=== PATIENT | female | born 1980 | race Caucasian/White ===

== ENCOUNTER → 2016-10-05 | Outpatient (CLI) | payer OTHER ==
--- NOTE | 2016-10-05 17:47 | REP ---
Focused right breast ultrasound: History: History of a painful palpable mass in the right breast at 2 o'clock position, 2 cm from the nipple. It is described as mobile and cystic and 5 mm in diameter by clinician breast exam. No comparison imaging. The patient is status post bilateral augmentation implants. Sonographic findings: The visualized implant margins are smooth. Scanning over the area of the palpable lump demonstrate a subdermal hypoechoic but somewhat heterogeneous nodule containing some low level and a few bright internal echoes. This is oval in shape with its long axis parallel to the skin measuring 12 x 11 x 6 mm. No detectable internal Doppler flow. There is some enhanced through transmission. Lesion is not a simple cyst. Impression: 12 mm subdermal nodule at the site of the palpable lump is nonspecific. The lesion is not compatible with a simple cyst. It is consistent with but not specific for fibroadenoma. If biopsy is not pursued, clinical follow-up is recommended. Signed by Stephen Posada MD 10/06/2016 08:01 A
== END ==
LOC: M RAD 14:58
PROVIDERS: ATTEND Family Medicine
DX: N63 Unspecified lump in breast (principal); Z98.82 Breast implant status

== ENCOUNTER → 2016-12-10 | Outpatient (CLI) | payer OTHER ==
--- NOTE | 2016-12-10 15:42 | REP ---
MRI CERVICAL SPINE WITHOUT CONTRAST: 12/10/2016. Clinical history: Occipital neuralgia. Neck pain. Technique: C1, T2 and STIR images with axial T1 and T2 sequences provided. Findings. No prior study. Sagittal images show slight loss of normal lordosis. Disc space height slightly narrowed C5-6 but the other disc space heights are maintained. C5-6 and levels above show slight loss of disc water signal, maintained relatively at the levels below. No compression deformity or destructive lesion. The cervical cord shows no intrinsic signal abnormality, syrinx or mass. No myelomalacia. There is no cerebellar tonsillar ectopia with an ample subarachnoid space at the craniocervical junction. At C2-3 through C4-5, there is no disc bulge or herniation and no spinal or foraminal stenosis. At C5-6 there is a minimal disc bulge without spinal or foraminal stenosis. At C6-7, C7-T1 and T1-2, there is no disc bulge or herniation and no spinal or foraminal stenosis. Impression: 1. Straightening of the spine, which may reflect some spasm with minor degenerative disc changes and disc bulge at C5-6 not causing spinal or foraminal stenosis. Minimal spondylosis with disc water signal, decreased at C4-5 and above. There are no spinal or foraminal stenosis at any level. 2. No intrinsic cord signal abnormality, syrinx, atrophy or mass. Signed by Hesham Hadley MD 12/10/2016 05:10 P
--- NOTE | 2016-12-10 16:51 | REP ---
MRI BRAIN WITHOUT CONTRAST: 12/10/2016. Comparison CT brain 09/24/2016, MRA brain today. Clinical history: Dizziness, giddiness, chronic migraine headaches, occipital neuralgia. Technique: Sagittal T1 with axial T1, T2, FLAIR, diffusion weighted images and ADC mapping sequences provided. Lateral ventricles are midline, symmetric and without dilatation or displacement. Third and fourth ventricles unremarkable. Basal ganglia are symmetric and normal. The prasad-white junction differentiation was well maintained. I see no significant periventricular, deep central or subcortical white matter hyperintense T2 or FLAIR signal abnormality of significance. Cortical stripe preserved. There is no vascular territory infarct, hemorrhage, mass or mass effect. There is no extra-axial fluid collection. The brainstem and cerebellum are grossly intact. No signal abnormality, hemorrhage or mass. Seventh/eighth cranial nerve complexes and mastoids are unremarkable. Sinuses and orbits and their contents grossly intact. The corpus callosum, optic chiasm and pituitary were normal. There is no cerebellar tonsillar ectopia with ample subarachnoid space at the craniocervical junction. Impression: 1. Normal MRI brain. No white matter tract signal abnormalities, intracranial hemorrhage, mass, edema, infarct or other significant finding. Negative exam. Signed by Hesham Hadley MD 12/10/2016 05:12 P
--- NOTE | 2016-12-10 16:59 | REP ---
MRA BRAIN WITHOUT CONTRAST: 12/10/2016. Clinical history: Dizziness, giddiness, chronic migraines. Occipital neuralgia. Technique: 3-D waji-ex-lsieny gradient echo volume acquisition with MIP reformatting and rotational display of the volume acquisition of the longitudinal and horizontal axis of the brain. Findings: There is a fairly symmetric supply to the basilar artery from the right and left vertebral arteries. No basilar stenosis or basilar tip aneurysm. There is a contribution to the left posterior cerebral artery from a posterior communicating artery. Symmetric posterior cerebral arteries beyond this. No aneurysm. The right internal carotid through the skull base and carotid siphons show no stenosis or aneurysm. The intracavernous and supraclinoid carotid were unremarkable. The A1 and M1 segments and the A2 and M2 segments and branches were grossly intact. The left internal carotid likewise shows intact course through the skull base to the carotid siphon. The cavernous carotid and supraclinoid were intact. The A1 and M1 segments are preserved. The A1 segment shows a few minimal areas of stenosis. The A2 and M2 segments were grossly intact and symmetric. Impression: 1. There is a posterior communicating artery, which contributes along with the normal basilar tip origin of the posterior cerebral artery to the left posterior cerebral. Symmetric supply to the posterior fossa. 2. Very minimal areas of stenosis in the A1 segment on the left compared to the right, but no aneurysm or significant stenosis on either side. The M1 segments and branches intact. No other finding. Signed by Hesham Hadley MD 12/10/2016 05:12 P
== END ==
LOC: M RAD 13:30
PROVIDERS: ATTEND Psychiatry & Neurology Neurology
DX: M50.222 Other cervical disc displacement at C5-C6 level (principal); M50.30 Other cervical disc degeneration, unspecified cervical region; M47.812 Spondylosis without myelopathy or radiculopathy, cervical region; G43.711 Chronic migraine without aura, intractable, with status migrainosus; G44.221 Chronic tension-type headache, intractable; M54.81 Occipital neuralgia

== ENCOUNTER 2017-05-16 07:55 | Emergency (ER) | payer OTHER, SELFPAY ==
[~2017-05-16] VITALS: Ht 154.9 cm; Wt 49.5 kg
[2017-05-16] MEDS ORDERED: KETOROLAC 30 MG/ML VIAL (J1885) IV ONE (09:15)
[2017-05-16 09:39] LABS: BASO % 0.5 % (0.0-1.0); EOS # 0.1 K/mm3 (0.0-0.50); LARGE UNSTAINED CELL # 0.2 K/mm3 (0.0-0.4); LARGE UNSTAINED CELL % 2.7 % (0.0-4.0); LYMPH # 1.8 K/mm3 (1.5-4.5); LYMPH % 25.1 % (24.0-44.0); MEAN CORPUSCULAR VOLUME 94.1 fl (80.0-96.0); MONO # 0.3 K/mm3 (0.0-0.8); MONO % 4.3 % (0.0-5.0); NEUTROPHILS # 4.8 K/mm3 (1.8-7.7); NEUTROPHILS % 66.4 % (36.0-66.0); PLATELET COUNT, AUTOMATED 208 k/mm3 (150-450); RED CELL DISTRIBUTION WIDTH 11.7 % (11.5-14.5); WHITE BLOOD COUNT 7.2 K/mm3 (4.0-10.0)
[2017-05-16 09:56] LABS: ALBUMIN 4.1 GM/DL (3.2-5.2); ALBUMIN/GLOBULIN RATIO 1.08 (1.00-1.93); ALKALINE PHOSPHATASE 41 U/L (45-117); ALT/SGPT 15 U/L (12-78); ANION GAP 8 MEQ/L (8-16); AST/SGOT 11 U/L (15-37); BILIRUBIN,DIRECT 0.2 MG/DL (0.0-0.2); BILIRUBIN,TOTAL 1.1 MG/DL (0.2-1.0); BLOOD UREA NITROGEN 15 MG/DL (7-18); CALCIUM LEVEL 8.5 MG/DL (8.5-10.1); CARBON DIOXIDE LEVEL 25 MEQ/L (21-32); CHLORIDE LEVEL 106 MEQ/L (98-107); CREATININE FOR GFR 0.75 MG/DL (0.55-1.02); GLOMERULAR FILTRATION RATE > 60.0 (>60); GLUCOSE, FASTING 87 MG/DL (70-105); POTASSIUM SERUM 3.7 MEQ/L (3.5-5.1); SODIUM LEVEL 139 MEQ/L (136-145); TOTAL PROTEIN 7.9 GM/DL (6.4-8.2)
--- NOTE | 2017-05-16 10:32 | REP ---
Pelvic sonography: History: Pelvic pain with spotting. Findings: Transabdominal scanning and transvaginal scanning are performed. Uterine dimensions are 9.7 x 4.7 x 6.1 cm. Endometrial echo is 1.2 cm thick and centrally placed. No focal uterine mass is seen. There is only a trace of fluid in the cul-de-sac. Visualized bladder alberts are smooth. The right ovary measures 4.3 x 2.4 x 3.1 cm. It contains a 2.1 x 1.2 x 1.7 cm follicle cyst. The left ovary is only seen transabdominally and has a normal appearance with dimensions of 2.7 x 1.0 x 2.8 cm. Impression: 2.1 cm follicle right ovary. Normal pelvic sonography. Signed by Stephen Posada MD 05/16/2017 10:57 A
[2017-05-16] MEDS ORDERED: BACT800T5 PO (11:50)
[2017-05-16] MEDS ORDERED: PERC5TAB12 PO (11:51)
[2017-05-16 12:12] VITALS: BP 103/68
== END 2017-05-16 12:13 | disposition home or self-care (01) ==
LOC: M ED 07:55
DX: N39.0 Urinary tract infection, site not specified (principal); N92.1 Excessive and frequent menstruation with irregular cycle; N83.299 Other ovarian cyst, unspecified side; N83.01 Follicular cyst of right ovary; Z88.5 Allergy status to narcotic agent; Z88.0 Allergy status to penicillin
CPT/HCPCS: 76830; 76856; 80048; 80076; 81001; 81025; 83690; 85025; 87086; 87210; 87491; 87591; 93976; 96374; 99284; J1885

== ENCOUNTER → 2017-10-19 | Outpatient (CLI) | payer OTHER ==
[2017-10-19 11:28] LABS: ANION GAP 8 MEQ/L (8-16); BLOOD UREA NITROGEN 12 MG/DL (7-18); CALCIUM LEVEL 9.1 MG/DL (8.5-10.1); CARBON DIOXIDE LEVEL 26 MEQ/L (21-32); CHLORIDE LEVEL 107 MEQ/L (98-107); CREATININE FOR GFR 0.71 MG/DL (0.55-1.02); GLOMERULAR FILTRATION RATE > 60.0 (>60); GLUCOSE, FASTING 96 MG/DL (70-100); POTASSIUM SERUM 4.5 MEQ/L (3.5-5.1); SODIUM LEVEL 141 MEQ/L (136-145); THYROID STIMULATING HORMONE 0.945 uIU/ML (0.358-3.740)
[2017-10-19 12:23] LABS: PROLACTIN 5.9 NG/ML
== END ==
LOC: M LAB 09:56
DX: F41.8 Other specified anxiety disorders (principal)
CPT/HCPCS: 84146

== ENCOUNTER → 2017-10-20 | Outpatient (CLI) | payer OTHER | LOC: M RAD 15:53 | DX: N63.10 Unspecified lump in the right breast, unspecified quadrant (principal); N64.59 Other signs and symptoms in breast | CPT/HCPCS: 77065 ==

== ENCOUNTER 2018-04-24 11:48 | Emergency (ER) | payer OTHER | END 2018-04-24 15:04 | disposition home or self-care (01) | LOC: M ED 11:48 | DX: S93.602A Unspecified sprain of left foot, initial encounter (principal); W28.XXXA Contact with powered lawn mower, initial encounter; Y92.096 Garden or yard of other non-institutional residence as the place of occurrence of the external cause; Z88.0 Allergy status to penicillin; Z88.8 Allergy status to other drugs, medicaments and biological substances | CPT/HCPCS: 73630 ==

== ENCOUNTER → 2018-06-05 | Outpatient (CLI) | payer OTHER | LOC: M LRY 11:43 | DX: R10.13 Epigastric pain (principal) | CPT/HCPCS: 74018 ==

== ENCOUNTER → 2018-06-15 | Outpatient (REF) | payer OTHER ==
[2018-06-15 18:48] LABS: CONTROL LINE HCG INT CTR LINE PRESENT; HCG, SERUM QUALITATIVE NEGATIVE (NEGATIVE)
[2018-06-15 22:30] LABS: FOLLICLE STIMULATING HORMONE 8.5 mIU/mL; FREE T4 1.28 NG/DL (0.76-1.46); LUTEINIZING HORMONE 3.9 mIU/mL
== END ==
LOC: M LAB REF 18:19
DX: N92.4 Excessive bleeding in the premenopausal period (principal)
CPT/HCPCS: 83001

== ENCOUNTER → 2018-06-29 | Outpatient (CLI) | payer OTHER | LOC: M RAD 08:56 | DX: G43.009 Migraine without aura, not intractable, without status migrainosus (principal); R42 Dizziness and giddiness; H90.6 Mixed conductive and sensorineural hearing loss, bilateral | CPT/HCPCS: 70551 ==

== ENCOUNTER → 2018-07-11 | Outpatient (CLI) | payer OTHER | LOC: M SMT 12:52 | DX: N92.4 Excessive bleeding in the premenopausal period (principal) | CPT/HCPCS: 76830 ==

== ENCOUNTER → 2018-07-19 | Outpatient (REF) | payer OTHER ==
[2018-07-21 14:47] LABS: HPV HYBRID CAPTURE II Negative (Negative)
== END ==
LOC: M LAB REF 18:07
DX: Z12.4 Encounter for screening for malignant neoplasm of cervix (principal)
CPT/HCPCS: 88142

== ENCOUNTER → 2018-08-02 | Outpatient (REF) | payer OTHER | LOC: M LAB REF 17:33 | DX: N93.9 Abnormal uterine and vaginal bleeding, unspecified (principal) ==

== ENCOUNTER 2018-08-21 08:41 | Day surgery (SDC) | payer OTHER ==
[2018-08-21] MEDS: LR 1,000 ML IV ×8 (08:59→22:59)
[2018-08-21 09:09] LABS: HEMOGLOBIN 13.2 g/dl (12.0-15.5); MEAN CORPUSCULAR HEMOGLOBIN 32.7 pg (27.0-33.0); MEAN CORPUSCULAR HGB CONC 34.7 g/dl (32.0-36.5); MEAN CORPUSCULAR VOLUME 94.1 fl (80.0-96.0); PLATELET COUNT, AUTOMATED 181 10^3/uL (150-450); RED BLOOD COUNT 4.04 10^6/uL (4.00-5.40); RED CELL DISTRIBUTION WIDTH 12.3 % (11.5-14.5); WHITE BLOOD COUNT 4.2 10^3/uL (4.0-10.0)
[2018-08-21 09:27] LABS: CONTROL LINE HCG INT CTR LINE PRESENT; HCG, SERUM QUALITATIVE NEGATIVE (NEGATIVE)
[2018-08-21] MEDS ORDERED: SCOPOLAMINE 1MG TRANSDERMAL PATCH As Ordered ×2 (09:50)
[2018-08-21] MEDS ORDERED: LIDOCAINE 2% INJ 100 MG/5 ML SDV (FOR ANES.) As Ordered ×2 (11:23)
[2018-08-21] MEDS ORDERED: MIDAZOLAM INJ 2 MG/2 ML VIAL (J2250) As Ordered ×2 (11:23)
[2018-08-21] MEDS ORDERED: dexameTHASONE 4 MG/ML 1ML VIAL (J1100) As Ordered ×2 (11:23)
[2018-08-21] MEDS ORDERED: PROPOFOL 200 MG/20 ML VIAL As Ordered ×2 (11:23)
[2018-08-21] MEDS ORDERED: fentaNYL 100 MCG/2 ML INJECTION (J3010) As Ordered ×2 (11:23)
[2018-08-21] MEDS ORDERED: ROCURONIUM BROMIDE 50 MG/5 ML VIAL As Ordered ×4 (11:23→11:52)
[2018-08-21] MEDS ORDERED: HYDROmorphone HCL 2 MG/ML 1ML VIAL (J1170) As Ordered ×2 (11:37)
[2018-08-21] MEDS ORDERED: ONDANSETRON 4MG/2ML VIAL (J2405) As Ordered ×2 (13:05)
[2018-08-21] MEDS ORDERED: KETOROLAC 60 MG/2 ML VIAL (J1885) As Ordered ×2 (13:05)
[2018-08-21] MEDS: METHYLENE BLUE 0.5% (5MG/ML) 10 ML AMP (PROVAYBLUE)(Q9968 PER 1MG) As Ordered ×2 (14:00)
[2018-08-21] MEDS ORDERED: NEOSTIGMINE 10 MG/10 ML VIAL (J2710) As Ordered ×2 (14:02)
[2018-08-21] MEDS ORDERED: GLYCOPYRROLATE INJ 0.2 MG/ML 2 ML VIAL As Ordered ×2 (14:03)
[2018-08-21] MEDS: BUPIVACAINE HCL 0.25% 30 ML VIAL As Ordered ×2 (14:30)
[2018-08-21] MEDS ORDERED: PROMETHAZINE INJ 25 MG/ML VIAL (J2550) IV ×2 (15:00)
[2018-08-21] MEDS ORDERED: PERCOCET 5MG/325MG TAB PO ×4 (15:00)
[2018-08-21] MEDS ORDERED: ONDANSETRON 4MG/2ML VIAL (J2405) IV ×2 (15:15)
[2018-08-21] MEDS ORDERED: HYDROMORPHONE HCL 0.5 MG/ 0.5 ML SYRINGE (J1170 PER 1) IV ×2 (15:15)
[2018-08-21] MEDS ORDERED: NORCO, ANEXSIA 5/325MG TABLET (HYDROcodone/ACETAMINOPHEN) PO ×2 (15:15)
[2018-08-21] MEDS ORDERED: fentaNYL 100 MCG/2 ML INJECTION (J3010) IV ×2 (15:15)
[2018-08-21] MEDS: SCOPOLAMINE 1MG TRANSDERMAL PATCH TOP ×2 (15:41)
[2018-08-21] MEDS: ONDANSETRON 4MG/2ML VIAL (J2405) IV ×2 (16:00)
[2018-08-21] MEDS: traMADol 50 MG TAB PO ×4 (16:07→23:53)
[2018-08-21] MEDS: KETOROLAC 30 MG/ML VIAL (J1885) IV ×2 (20:41)
[2018-08-21] MEDS: DOCUSATE SODIUM 100 MG CAP PO ×2 (21:23)
[2018-08-21] MEDS: VENLAFAXINE 25 MG TAB PO ×2 (21:23)
[2018-08-22] MEDS: KETOROLAC 30 MG/ML VIAL (J1885) IV ×6 (02:47→14:34)
[2018-08-22] MEDS: traMADol 50 MG TAB PO ×6 (05:50→20:36)
[2018-08-22] MEDS: LR 1,000 ML IV ×2 (07:00)
[2018-08-22 07:05] LABS: BASO % 0.2 % (0.0-1.0); IMMATURE GRANULOCYTE % 0.3 % (0-3.0); LYMPH # 1.5 10^3/uL (1.5-4.5); LYMPH % 23.6 % (24.0-44.0); MEAN CORPUSCULAR HGB CONC 33.9 g/dl (32.0-36.5); MEAN CORPUSCULAR VOLUME 94.5 fl (80.0-96.0); MONO # 0.5 10^3/uL (0.0-0.8); MONO % 8.4 % (0.0-5.0); NEUTROPHILS # 4.3 10^3/uL (1.8-7.7); NEUTROPHILS % 67.5 % (36.0-66.0); PLATELET COUNT, AUTOMATED 161 10^3/uL (150-450); RED BLOOD COUNT 3.28 10^6/uL (4.00-5.40); RED CELL DISTRIBUTION WIDTH 12.5 % (11.5-14.5); WHITE BLOOD COUNT 6.4 10^3/uL (4.0-10.0)
[2018-08-22 07:09] LABS: HEMOGLOBIN 10.5 g/dl (12.0-15.5)
[2018-08-22] MEDS ORDERED: VENLAFAXINE 25 MG TAB PO ×2 (09:00)
[2018-08-22] MEDS: DOCUSATE SODIUM 100 MG CAP PO ×4 (09:17→20:34)
[2018-08-22] MEDS ORDERED: SLF 3 ML SYR IV ×2 (17:00)
[2018-08-22] MEDS: VENLAFAXINE 25 MG TAB PO ×2 (20:34)
[2018-08-22] MEDS: IBUPROFEN 800 MG TAB PO ×2 (22:06)
[2018-08-22] MEDS: SLF 3 ML SYR IV ×2 (22:07)
[2018-08-22] MEDS: ONDANSETRON 4MG/2ML VIAL (J2405) IV ×2 (23:52)
[2018-08-23] MEDS: traMADol 50 MG TAB PO ×2 (04:10)
[2018-08-23] MEDS: IBUPROFEN 800 MG TAB PO ×4 (06:04→13:55)
[2018-08-23] MEDS: SLF 3 ML SYR IV ×2 (06:05)
[2018-08-23] MEDS: DOCUSATE SODIUM 100 MG CAP PO ×2 (08:17)
== END 2018-08-23 14:15 | disposition home or self-care (01) ==
LOC: M SDC 08:41 → M PED 15:35 → M SDC 08-23 14:15
DX: N93.9 Abnormal uterine and vaginal bleeding, unspecified (principal); R10.2 Pelvic and perineal pain; F41.9 Anxiety disorder, unspecified; F32.9 Major depressive disorder, single episode, unspecified; G43.909 Migraine, unspecified, not intractable, without status migrainosus; F40.240 Claustrophobia; Z88.0 Allergy status to penicillin; Z88.5 Allergy status to narcotic agent; Z79.899 Other long term (current) drug therapy
CPT/HCPCS: 58571

== ENCOUNTER → 2018-10-18 | Outpatient (CLI) | payer OTHER ==
[~2018-10-18] MED LIST: AZIT-12 PO; BACT800T5 PO; COLA100C5 PO; IBUP80TA PO; NAPR-50 PO; PERC5TAB12 PO; ULTR50TA8 PO; VENL1TAB35 PO; ZOFR4TAB14 SL
--- NOTE | 2018-10-18 13:36 | REP ---
LUMBAR SPINE, SIX VIEWS: HISTORY: Back pain. There is no acute fracture or subluxation. The intervertebral discs are normal in height. The facet joints are normal in appearance. There is partial sacralization of the L5 vertebral body. IMPRESSION:There is no acute fracture or subluxation. Electronically Signed by Jericho Freeman MD 10/18/2018 01:56 P
== END ==
LOC: M LRY 12:25
PROVIDERS: ATTEND Nurse Practitioner Family
DX: M54.5 Low back pain (principal)

== ENCOUNTER → 2018-12-05 | Outpatient (CLI) | payer OTHER ==
--- NOTE | 2018-12-05 11:28 | REP ---
SACRUM AND COCCYX, THREE VIEWS: HISTORY: Injury. There is no acute fracture or subluxation. The L4-5 and L5-S1 intervertebral discs are normal in height . There is partial sacralization of the L5 vertebral body. IMPRESSION: There is no acute fracture or subluxation. Electronically Signed by Jericho Freeman MD 12/05/2018 11:31 A
--- NOTE | 2018-12-05 11:29 | REP ---
Lumbar spine five views: Comparison is 10/18/2018. Vertebral body heights, interspacing alignment are normal. There is no spondylolysis. There is no spondylolisthesis. The facets, pedicles and sacroiliac articulations are unremarkable. There is partial sacralization of the L5 vertebra on the right, unchanged. Impression: Negative lumbar spine. No fracture or listhesis. Electronically Signed by Ford Butts MD 12/05/2018 11:20 A
== END ==
LOC: M LRY 10:16
PROVIDERS: ATTEND Nurse Practitioner Family
DX: S39.92XA Unspecified injury of lower back, initial encounter (principal); X58.XXXA Exposure to other specified factors, initial encounter; Y92.89 Other specified places as the place of occurrence of the external cause

== ENCOUNTER → 2018-12-24 | Outpatient (REF) | payer OTHER | LOC: M SFHCLERA 16:20 | PROVIDERS: ATTEND Physician Assistant | DX: R50.9 Fever, unspecified (principal) ==

== ENCOUNTER → 2019-01-31 | Outpatient (REF) | payer OTHER, MEDICAID ==
[~2019-01-31] MED LIST changes: -NAPR-50 PO; +NAPR-837 PO
[2019-01-31 18:35] LABS: BASO # 0.1 10^3/uL (0.0-0.2); BASO % 0.9 % (0.0-1.0); EOS # 0.2 10^3/uL (0.0-0.50); EOS % 2.6 % (0.0-3.0); HEMATOCRIT 41.8 % (36.0-47.0); HEMOGLOBIN 14.1 g/dl (12.0-15.5); LYMPH # 2.1 10^3/uL (1.5-4.5); MEAN CORPUSCULAR HEMOGLOBIN 32.6 pg (27.0-33.0); MEAN CORPUSCULAR HGB CONC 33.7 g/dl (32.0-36.5); MEAN CORPUSCULAR VOLUME 96.8 fl (80.0-96.0); MONO # 0.6 10^3/uL (0.0-0.8); MONO % 8.2 % (0.0-5.0); NEUTROPHILS # 3.9 10^3/uL (1.8-7.7); PLATELET COUNT, AUTOMATED 232 10^3/uL (150-450); RED BLOOD COUNT 4.32 10^6/uL (4.00-5.40); WHITE BLOOD COUNT 6.9 10^3/uL (4.0-10.0)
[2019-01-31 18:44] LABS: ALT/SGPT 23 U/L (12-78); BILIRUBIN,TOTAL 0.7 MG/DL (0.2-1.0); BLOOD UREA NITROGEN 12 MG/DL (7-18); CALCIUM LEVEL 9.1 MG/DL (8.5-10.1); CARBON DIOXIDE LEVEL 27 MEQ/L (21-32); CHLORIDE LEVEL 105 MEQ/L (98-107); CHOLESTEROL LEVEL 192 MG/DL (<200); CREATININE FOR GFR 0.73 MG/DL (0.55-1.30); GLOMERULAR FILTRATION RATE > 60.0 (>60); GLUCOSE, FASTING 86 MG/DL (70-100); POTASSIUM SERUM 3.7 MEQ/L (3.5-5.1); SODIUM LEVEL 137 MEQ/L (136-145); TRIGLYCERIDES LEVEL 77 MG/DL (<150)
[2019-01-31 18:45] LABS: ALBUMIN 4.3 GM/DL (3.2-5.2); CHOLESTEROL RISK RATIO 3.096 (<5); HDL CHOLESTEROL 62 MG/DL (>40); LDL CHOLESTEROL 115 MG/DL (<100); NON-HDL-C 130 MG/DL; TOTAL PROTEIN 7.6 GM/DL (6.4-8.2)
[2019-01-31 19:44] LABS: HEMOGLOBIN A1c 5.2 %
[2019-01-31 20:56] LABS: VITAMIN B12 LEVEL 536 PG/ML
[2019-01-31 22:34] LABS: FOLATE 14.9 NG/ML
== END ==
LOC: M LAB REF 17:26
PROVIDERS: ATTEND Nurse Practitioner Family
DX: Z13.9 Encounter for screening, unspecified (principal); R00.2 Palpitations

== ENCOUNTER → 2019-06-05 | Outpatient (CLI) | payer OTHER ==
--- NOTE | 2019-06-05 13:36 | REP ---
RIGHT SHOULDER THREE VIEWS: There is no evidence of an acute fracture, dislocation or intrinsic bone disease. The joint spaces appear unremarkable. IMPRESSION: No fracture or dislocation. Electronically Signed by Ford Mccauley MD 06/06/2019 04:43 P
== END ==
LOC: M RAD 12:40
PROVIDERS: ATTEND Nurse Practitioner Family
DX: M25.511 Pain in right shoulder (principal)

== ENCOUNTER → 2019-06-26 | Outpatient (CLI) | payer OTHER | LOC: M LAB 12:23 | PROVIDERS: ATTEND Nurse Practitioner Family | DX: M25.511 Pain in right shoulder (principal) ==

== ENCOUNTER → 2019-07-04 | Outpatient (REF) | payer OTHER | LOC: M LAB REF 17:22 | PROVIDERS: ATTEND Orthopaedic Surgery Hand Surgery | DX: M67.441 Ganglion, right hand (principal) ==

== ENCOUNTER → 2019-09-22 | Outpatient (CLI) | payer OTHER ==
--- NOTE | 2019-09-23 17:01 | REPVR ---
PROCEDURE INFORMATION: Exam: MR Lumbar Spine Without Contrast. 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 COMPARISON: CR SPINE LS COMPLETE 12/05/2018 10:45 AM FINDINGS: Vertebrae: The conus terminates at the level of the L1 vertebral body. Hemangiomas within T12 and L1 vertebral bodies. High T1 signal lesion within the right ilium, incompletely visualized, consistent with hemangioma. No fracture. Spinal cord: Normal signal. No cord compression. L1-L2: No significant disc disease. No significant spinal stenosis. L2-L3: No significant disc disease. No significant spinal stenosis. L3-L4: No significant disc disease. No significant spinal stenosis. L4-L5: Mild degenerative facet arthrosis. Normal disc. No focal disc protrusion or nerve impingement. L5-S1: Mild degenerative facet arthrosis. No disc protrusion, nerve impingement or spinal stenosis. Soft tissues: Unremarkable. IMPRESSION: 1. Mild degenerative facet arthrosis at L4-L5, L5-S1. 2. No disc herniation, nerve root impingement or spinal stenosis. Electronically signed by: Jose Barry On 09/23/2019 17:01:27 PM
== END ==
LOC: M RAD 11:23
PROVIDERS: ATTEND Orthopaedic Surgery
DX: M46.96 Unspecified inflammatory spondylopathy, lumbar region (principal); M46.97 Unspecified inflammatory spondylopathy, lumbosacral region; M51.37 Other intervertebral disc degeneration, lumbosacral region

== ENCOUNTER → 2020-03-03 | Outpatient (REF) | payer OTHER, MEDICAID ==
[2020-03-03 17:58] LABS: BASO % 0.6 % (0.0-1.0); EOS # 0.1 10^3/uL (0.0-0.5); EOS % 1.9 % (0.0-3.0); HEMATOCRIT 39.4 % (36.0-47.0); HEMOGLOBIN 13.5 g/dl (12.0-15.5); LYMPH # 2.3 10^3/uL (1.5-5.0); LYMPH % 36.7 % (24.0-44.0); MEAN CORPUSCULAR HEMOGLOBIN 32.2 pg (27.0-33.0); MEAN CORPUSCULAR HGB CONC 34.3 g/dl (32.0-36.5); MONO # 0.5 10^3/uL (0.0-0.8); MONO % 8.7 % (0.0-5.0); NEUTROPHILS # 3.2 10^3/uL (1.5-8.5); NEUTROPHILS % 51.8 % (36.0-66.0); PLATELET COUNT, AUTOMATED 196 10^3/uL (150-450); RED BLOOD COUNT 4.19 10^6/uL (4.00-5.40); WHITE BLOOD COUNT 6.2 10^3/uL (4.0-10.0)
[2020-03-03 18:12] LABS: ALBUMIN 4.1 GM/DL (3.2-5.2); ALT/SGPT 19 U/L (12-78); BILIRUBIN,TOTAL 0.7 MG/DL (0.2-1.0); BLOOD UREA NITROGEN 11 MG/DL (7-18); CARBON DIOXIDE LEVEL 29 MEQ/L (21-32); CHLORIDE LEVEL 108 MEQ/L (98-107); CHOLESTEROL LEVEL 170 MG/DL (<200); CHOLESTEROL RISK RATIO 3.269 (<5); CREATININE FOR GFR 0.78 MG/DL (0.55-1.30); GLOMERULAR FILTRATION RATE > 60.0 (>60); GLUCOSE, FASTING 92 MG/DL (70-100); HDL CHOLESTEROL 52 MG/DL (>40); LDL CHOLESTEROL 107 MG/DL (<100); NON-HDL-C 118 MG/DL; POTASSIUM SERUM 4.4 MEQ/L (3.5-5.1); SODIUM LEVEL 141 MEQ/L (136-145); TOTAL PROTEIN 7.5 GM/DL (6.4-8.2); TRIGLYCERIDES LEVEL 56 MG/DL (<150)
[2020-03-03 20:27] LABS: HEMOGLOBIN A1c 5.2 %
== END ==
LOC: M LAB REF 17:42
PROVIDERS: ATTEND Family Medicine
DX: R10.816 Epigastric abdominal tenderness (principal)

== ENCOUNTER → 2020-04-03 | Outpatient (CLI) | payer OTHER, MEDICAID ==
--- NOTE | 2020-04-03 13:39 | REP ---
REASON: Epigastric pain. Patient is status post cholecystectomy. Ultrasonographic evaluation of the liver shows no abnormality. There are no masses. There is no intrahepatic or extrahepatic ductal dilatation. The common bile duct measures between 4 and 5 mm. The imaged portion of the pancreas and right kidney are within normal limits. There is no free fluid in the abdomen. IMPRESSION: Right upper quadrant ultrasound is within normal limits. Electronically Signed by Homero Lake DO 04/03/2020 04:56 P
--- NOTE | 2020-04-03 16:08 | REP ---
REASON: Bloating. Patient is status post hysterectomy. Transvesical and transvaginal imaging was obtained. The right ovary measures 3.4 x 2.8 x 2.8 cm. Within the right ovary, there is an anechoic structure which measures 2.7 cm in its greatest dimension and exhibits posterior wall enhancement and increased through transmission. This is likely a simple right ovarian cyst. Although the left ovary was not visualized, there is a tubular serpiginous structure in the left adnexa possibly representing hydrosalpinx. Urinary bladder measures 5 cm. IMPRESSION: 1. Simple appearing right ovarian cyst. 2. Possible left adnexal hydrosalpinx. Electronically Signed by Homero Lake DO 04/03/2020 04:59 P
== END ==
LOC: M LRY 08:47
PROVIDERS: ATTEND Physician Assistant
DX: R10.816 Epigastric abdominal tenderness (principal); Z90.49 Acquired absence of other specified parts of digestive tract; Z80.41 Family history of malignant neoplasm of ovary

== ENCOUNTER → 2020-04-04 | Outpatient (CLI) | payer OTHER ==
[~2020-04-04] MED LIST changes: +E-Z-GAS II EFFERVESCENT PACKET (SODIUM BICARB./CITRIC ACID/SIMETHICONE) As Ordered ONE; +E-Z-HD 98% w/w 340GM SUSP BTL As Ordered ONE; +E-Z-PAQUE 96% w/w SUSP 176GM BTL As Ordered ONE
--- NOTE | 2020-04-06 23:48 | REP ---
Examination Requested: Upper G.I. Series With KUB Reason For Exam: Epigastric tenderness Upper GI Air Contrast The procedure was performed by BARRY Kennedy, under the direct supervision of Dr. Mccauley. The images were reviewed with Dr. Mccauley. The sales trader film shows no organomegaly or pathological masses. The intestinal gas pattern appears normal. There are surgical clips in the right upper quadrant. Liquid barium and gas producing crystals were given in the erect position as well as liquid barium in the prone oblique position in order to perform a double contrast upper GI examination. The oral and pharyngeal stages of deglutition were unremarkable. Esophageal transport is efficient and there is no esophagitis, stricture, or mucosal ring noted. There is no hiatal hernia. Gastroesophageal reflux was not visualized during the course of the exam. The stomach alberts are normally outlined. The rugal folds are smooth and regular. There is no gastritis, neoplasm, ulcer disease noted. The duodenal alberts are normally outlined. There is a small diverticulum of the third portion of the duodenum. The mucosal folds are smooth and regular. There is no duodenitis, peptic ulcer disease, or neoplasm noted. The visualized portion of the proximal small bowel appears normal in course and caliber. Impression: 1. Small diverticulum of the third portion of the duodenum. 0.5 minutes of fluoroscopy time was utilized for this procedure. Some fluoroscopic images are performed with last image hold technology. These images require no additional radiation. Reviewed by BARRY Coley 04/04/2020 03:37 P Electronically Signed by Ford Mccauley MD 04/06/2020 11:39 P
== END ==
LOC: M RAD 07:41
PROVIDERS: ATTEND Physician Assistant
DX: K21.9 Gastro-esophageal reflux disease without esophagitis (principal); Z98.84 Bariatric surgery status

== ENCOUNTER → 2020-04-04 | Outpatient (CLI) | payer OTHER ==
[~2020-04-04] MED LIST changes: -E-Z-GAS II EFFERVESCENT PACKET (SODIUM BICARB./CITRIC ACID/SIMETHICONE) As Ordered ONE; -E-Z-HD 98% w/w 340GM SUSP BTL As Ordered ONE; -E-Z-PAQUE 96% w/w SUSP 176GM BTL As Ordered ONE
[2020-04-04 10:41] LABS: CA 125 5.7 U/ML (<30.2)
== END ==
LOC: M LAB 08:34
PROVIDERS: ATTEND Physician Assistant
DX: Z90.49 Acquired absence of other specified parts of digestive tract (principal); Z80.41 Family history of malignant neoplasm of ovary; R10.816 Epigastric abdominal tenderness

== ENCOUNTER → 2020-04-14 | Outpatient (CLI) | payer OTHER ==
[2020-04-15 13:12] LABS: H PYLORI QUALITATIVE IgG NEGATIVE (NEGATIVE)
== END ==
LOC: M LAB 13:17
PROVIDERS: ATTEND Nurse Practitioner Family
DX: R10.816 Epigastric abdominal tenderness (principal); Z90.49 Acquired absence of other specified parts of digestive tract; Z80.41 Family history of malignant neoplasm of ovary

== ENCOUNTER → 2021-01-28 | Outpatient (CLI) | payer OTHER ==
[~2021-01-28] MED LIST changes: +ATEN25TA PO
== END ==
LOC: M LABSMTC 11:02
PROVIDERS: ATTEND Anesthesiology
DX: Z01.812 Encounter for preprocedural laboratory examination (principal)

== ENCOUNTER 2021-02-02 11:07 | Day surgery (SDC) | payer OTHER ==
[~2021-02-02] VITALS: Ht 154.9 cm; Wt 49.4 kg
[~2021-02-02 11:07] MED LIST changes: +LIDOCAINE 2% 100MG/5ML SDV (FOR ANES.) As Ordered ONE; +NS 1,000 ML IV ONE; +fentaNYL 100 MCG/2 ML INJECTION (J3010) As Ordered ONE; +propofoL 500 MG/50 ML VIAL As Ordered ONE
[2021-02-02] MEDS ORDERED: MIDAZOLAM INJ 2MG/2ML VIAL (J2250 PER 1MG) As Ordered ONE (13:06)
--- NOTE | 2021-02-02 13:21 | ROOR ---
Patient Name: Ema Gonzalez Procedure Date: 02/02/2021 1:03 PM Date of : 1980 Age: 40 Room: [facility] Gender: Female Note Status: Finalized Procedure: Upper GI endoscopy Indications: Dyspepsia, Weight loss Providers: Sinan Chowdhury MD Referring MD: SCOTT Hurtado Requesting Provider: Medicines: Monitored Anesthesia Care Complications: No immediate complications. Procedure: Pre-Anesthesia Assessment: - Prior to the procedure, a History and Physical was performed, and patient medications and allergies were reviewed. The patient is competent. The risks and benefits of the procedure and the sedation options and risks were discussed with the patient. All questions were answered and informed consent was obtained. Patient identification and proposed procedure were verified by the physician, the nurse and the anesthesiologist in the procedure room. Mental Status Examination: alert and oriented. Airway Examination: normal oropharyngeal airway and neck mobility. Respiratory Examination: clear to auscultation. CV Examination: normal. Prophylactic Antibiotics: The patient does not require prophylactic antibiotics. Prior Anticoagulants: The patient has taken no previous anticoagulant or antiplatelet agents. ASA Grade Assessment: II - A patient with mild systemic disease. After reviewing the risks and benefits, the patient was deemed in satisfactory condition to undergo the procedure. The anesthesia plan was to use monitored anesthesia care (MAC). Immediately prior to administration of medications, the patient was re-assessed for adequacy to receive sedatives. The heart rate, respiratory rate, oxygen saturations, blood pressure, adequacy of pulmonary ventilation, and response to care were monitored throughout the procedure. The physical status of the patient was re-assessed after the procedure. The Endoscope was introduced through the mouth, and advanced to the second part of duodenum. The upper GI endoscopy was accomplished without difficulty. The patient tolerated the procedure well. Findings: The Z-line was regular and was found 36 cm from the incisors. Scattered moderate inflammation characterized by erythema, friability and granularity was found in the gastric body and in the gastric antrum. Biopsies were taken with a cold forceps for histology. Biopsies were taken with a cold forceps for Helicobacter pylori testing. Verification of patient identification for the specimen was done by the physician and nurse using the patient's name, date and medical record number. Estimated blood loss was minimal. The duodenal bulb and second portion of the duodenum were normal. Biopsies for histology were taken with a cold forceps for evaluation of celiac disease. Impression: - Z-line regular, 36 cm from the incisors. - Gastritis. Biopsied. - Normal duodenal bulb and second portion of the duodenum. Biopsied. Recommendation: - Patient has a contact number available for emergencies. The signs and symptoms of potential delayed complications were discussed with the patient. Return to normal activities tomorrow. Written discharge instructions were provided to the patient. - High fiber diet. - Continue present medications. - Await pathology results. - Return to GI clinic in [facility] (address [address], [address], [place], [facility]) in 4 -- 6 weeks. Please call GI clinic @ [phone] for apppointment date and time. - Return to primary care physician. Procedure Code(s): --- Professional --- 20661, Esophagogastroduodenoscopy, flexible, transoral; with biopsy, single or multiple Diagnosis Code(s): --- Professional --- K29.70, Gastritis, unspecified, without bleeding R10.13, Epigastric pain R63.4, Abnormal weight loss CPT copyright 2019 [employer]. All rights reserved. The codes documented in this report are preliminary and upon campaign assistant review may be revised to meet current compliance requirements. Sinan Chowdhury MD Sinan Chowdhury MD 02/02/2021 1:21:24 PM Electronically signed by Sinan Chowdhury MD Number of Addenda: 0 Note Initiated On: 02/02/2021 1:03 PM Estimated Blood Loss: Estimated blood loss was minimal.
--- NOTE | 2021-02-02 13:57 | ROOR ---
Patient Name: Ema Gonzalez Procedure Date: 02/02/2021 1:04 PM Date of : 1980 Age: 40 Room: [facility] Gender: Female Note Status: Finalized Procedure: Colonoscopy Indications: Weight loss Providers: Sinan Chowdhury MD Referring MD: Tenzin Simmons MD Requesting Provider: Medicines: Monitored Anesthesia Care Complications: No immediate complications. Procedure: Pre-Anesthesia Assessment: - Prior to the procedure, a History and Physical was performed, and patient medications and allergies were reviewed. The patient is competent. The risks and benefits of the procedure and the sedation options and risks were discussed with the patient. All questions were answered and informed consent was obtained. Patient identification and proposed procedure were verified by the physician, the nurse and the anesthesiologist in the procedure room. Mental Status Examination: alert and oriented. Airway Examination: normal oropharyngeal airway and neck mobility. Respiratory Examination: clear to auscultation. CV Examination: normal. Prophylactic Antibiotics: The patient does not require prophylactic antibiotics. Prior Anticoagulants: The patient has taken no previous anticoagulant or antiplatelet agents. ASA Grade Assessment: II - A patient with mild systemic disease. After reviewing the risks and benefits, the patient was deemed in satisfactory condition to undergo the procedure. The anesthesia plan was to use monitored anesthesia care (MAC). Immediately prior to administration of medications, the patient was re-assessed for adequacy to receive sedatives. The heart rate, respiratory rate, oxygen saturations, blood pressure, adequacy of pulmonary ventilation, and response to care were monitored throughout the procedure. The physical status of the patient was re-assessed after the procedure. The Colonoscope was introduced through the anus and advanced to the terminal ileum, with identification of the appendiceal orifice and IC valve. The colonoscopy was performed without difficulty. The patient tolerated the procedure well. The quality of the bowel preparation was good. The terminal ileum, ileocecal valve, appendiceal orifice, and rectum were photographed. Scope insertion time was 3 minutes. Scope withdrawal time was 8 minutes. The total duration of the procedure was 11 minutes. Findings: The perianal and digital rectal examinations were normal. The terminal ileum appeared normal. A moderate amount of semi-liquid stool was found from transverse colon to ascending colon, interfering with visualization. Lavage of the area was performed using a large amount of sterile water, resulting in clearance with fair visualization. Normal mucosa was found in the entire colon. Biopsies for histology were taken with a cold forceps from the right colon, left colon and rectosigmoid colon for evaluation of microscopic colitis. Verification of patient identification for the specimen was done by the physician and nurse using the patient's name, date and medical record number. Estimated blood loss was minimal. Non-bleeding external and internal hemorrhoids were found during retroflexion. The hemorrhoids were small. Impression: - The examined portion of the ileum was normal. - Stool from transverse colon to ascending colon. - Normal mucosa in the entire examined colon. Biopsied. - Non-bleeding external and internal hemorrhoids. Recommendation: - Patient has a contact number available for emergencies. The signs and symptoms of potential delayed complications were discussed with the patient. Return to normal activities tomorrow. Written discharge instructions were provided to the patient. - High fiber diet. - Continue present medications. - Await pathology results. - Repeat colonoscopy at age 52 for screening purposes. - Return to GI clinic in [facility] (address [address], [address], [place] [address]) in 4 -- 6 weeks. Please call GI clinic @ [phone] for apppointment date and time. - Return to primary care physician. Procedure Code(s): --- Professional --- 93191, Colonoscopy, flexible; with biopsy, single or multiple Diagnosis Code(s): --- Professional --- K64.8, Other hemorrhoids R63.4, Abnormal weight loss CPT copyright 2019 [employer]. All rights reserved. The codes documented in this report are preliminary and upon interlocking machine operator review may be revised to meet current compliance requirements. Sinan Chowdhury MD Sinan Chowdhury MD 02/02/2021 1:56:55 PM Electronically signed by Sinan Chowdhury MD Number of Addenda: 0 Note Initiated On: 02/02/2021 1:04 PM Estimated Blood Loss: Estimated blood loss was minimal.
[2021-02-02 14:19] VITALS: BP 150/72
== END 2021-02-02 14:21 | disposition home or self-care (01) ==
LOC: M OPP 11:07
PROVIDERS: ATTEND Internal Medicine Gastroenterology
DX: K64.8 Other hemorrhoids (principal); R63.4 Abnormal weight loss; K29.70 Gastritis, unspecified, without bleeding; R10.13 Epigastric pain; K59.00 Constipation, unspecified; Z79.899 Other long term (current) drug therapy; Z88.0 Allergy status to penicillin; Z88.5 Allergy status to narcotic agent; Z88.8 Allergy status to other drugs, medicaments and biological substances; Z91.041 Radiographic dye allergy status
CPT/HCPCS: 43239; 45380; 88305; J2250; J3010

== ENCOUNTER → 2021-04-02 | Outpatient (CLI) | payer OTHER ==
[~2021-04-02] MED LIST changes: -LIDOCAINE 2% 100MG/5ML SDV (FOR ANES.) As Ordered ONE; -NS 1,000 ML IV ONE; -fentaNYL 100 MCG/2 ML INJECTION (J3010) As Ordered ONE; -propofoL 500 MG/50 ML VIAL As Ordered ONE
[2021-04-02 13:05] LABS: BASO % 0.4 % (0.0-1.0); EOS # 0.1 10^3/uL (0.0-0.5); EOS % 0.8 % (0.0-3.0); HEMATOCRIT 41.9 % (36.0-47.0); HEMOGLOBIN 13.9 g/dl (12.0-15.5); LYMPH # 1.9 10^3/uL (1.5-5.0); MEAN CORPUSCULAR HGB CONC 33.2 g/dl (32.0-36.5); MEAN CORPUSCULAR VOLUME 90.5 fl (80.0-96.0); MONO # 0.7 10^3/uL (0.0-0.8); MONO % 7.7 % (2.0-8.0); NEUTROPHILS # 5.9 10^3/uL (1.5-8.5); NEUTROPHILS % 68.7 % (36.0-66.0); PLATELET COUNT, AUTOMATED 223 10^3/uL (150-450); RED BLOOD COUNT 4.63 10^6/uL (4.00-5.40); WHITE BLOOD COUNT 8.6 10^3/uL (4.0-10.0)
[2021-04-02 13:28] LABS: ALBUMIN 4.4 GM/DL (3.2-5.2); ALT/SGPT 22 U/L (12-78); BILIRUBIN,DIRECT 0.2 MG/DL (0.0-0.2); BILIRUBIN,TOTAL 0.9 MG/DL (0.2-1.0); BLOOD UREA NITROGEN 13 MG/DL (7-18); CREATININE FOR GFR 0.73 MG/DL (0.55-1.30); FERRITIN 9 NG/ML (8-252); GLOMERULAR FILTRATION RATE > 60.0 (>60); IRON (FE) 119 UG/DL (50-170); PERCENT SATURATION 25.9 % (13.2-45.0); TOTAL IRON BINDING CAPACITY 460 UG/DL (250-450); TOTAL PROTEIN 8.2 GM/DL (6.4-8.2)
[2021-04-02 13:31] LABS: FOLATE 13.2 NG/ML
[2021-04-02 13:47] LABS: VITAMIN B12 LEVEL 371 PG/ML
[2021-04-04 01:11] LABS: IGASUB3 33.9 mg/dL (13.4-97.9); IgA SERUM (part of Subclasses) 237 mg/dL (87-352); TISSUE TRANSGLUTAMINASE IgA <2 U/mL (0-3)
== END ==
LOC: M LAB 11:15
PROVIDERS: ATTEND Internal Medicine Gastroenterology
DX: R63.4 Abnormal weight loss (principal)

== ENCOUNTER → 2021-04-21 | Outpatient (CLI) | payer OTHER ==
[~2021-04-21] MED LIST changes: +E-Z-GAS II EFFERVESCENT PACKET (SODIUM BICARB./CITRIC ACID/SIMETHICONE) As Ordered ONE; +E-Z-HD 98% w/w 340GM SUSP BTL As Ordered ONE; +E-Z-PAQUE 96% w/w SUSP 176GM BTL As Ordered ONE
--- NOTE | 2021-04-21 17:31 | REP ---
INDICATION: ABN WT LOSS PER ORDER WITH DOUBLE CONTRAST. COMPARISON: None. TECHNIQUE: The procedure was performed under the direct supervision of Dr. Posada. The images were reviewed with Dr. Poasda. Liquid barium and gas producing crystals were given in the erect position as well as liquid barium in the prone oblique position in order to perform a double contrast upper GI examination. Additionally liquid barium was given at the end of the examination in order to perform a small bowel follow through. A combination od fluoroscopy, spot films and last image hold technology was utilized, 1.7 minutes of fluoro time was utilized for this procedure. FINDINGS: The fiscal services director film shows no organomegaly or pathological masses. The intestinal gas pattern is non-specific. The oral and pharyngeal stages of deglutition are unremarkable. Esophageal transport is prompt and efficient and there is no esophagitis, stricture, mucosal ring or hiatal hernia. There is gastroesophageal reflux demonstrated to the level of the thoracic inlet. The stomach alberts are normally outlined. The rugal folds are smooth and regular. There is no gastritis neoplasm or ulcer disease. The duodenal alberts are normally outlined . The mucosal folds are smooth and regular. There is no duodenitis pancreatitis peptic ulcer disease or neoplasm. The visualized portion of the proximal small bowel appears normal in course and caliber. The barium column was followed through the small bowel to the level of the terminal ileum. Small bowel transit time is approximately 30 minutes. During fluoroscopy gentle palpation shows all loops are freely movable and pliable. There are no fixed or angulated loops. The small bowel mucosal pattern is normal in course and caliber. There is no transition to suggest a partial small-bowel obstruction. Spot filming of the terminal ileum shows it to be unremarkable. IMPRESSION: There is gastroesophageal reflux demonstrated to the level of the thoracic inlet. Otherwise, unremarkable double contrast upper GI and small bowel follow through examination. <Electronically signed by Rian Louis > 04/21/21 1719 <Electronically signed by Stephen Posada > 04/21/21 172
== END ==
LOC: M RAD 10:37
PROVIDERS: ATTEND Internal Medicine Gastroenterology
DX: R63.4 Abnormal weight loss (principal)

== ENCOUNTER → 2021-04-27 | Outpatient (CLI) | payer OTHER ==
[~2021-04-27] MED LIST changes: -E-Z-GAS II EFFERVESCENT PACKET (SODIUM BICARB./CITRIC ACID/SIMETHICONE) As Ordered ONE; -E-Z-HD 98% w/w 340GM SUSP BTL As Ordered ONE; -E-Z-PAQUE 96% w/w SUSP 176GM BTL As Ordered ONE
[2021-04-27 14:37] LABS: BASO % 0.5 % (0.0-1.0); EOS # 0.1 10^3/uL (0.0-0.5); EOS % 1.5 % (0.0-3.0); HEMATOCRIT 41.8 % (36.0-47.0); LYMPH # 2.3 10^3/uL (1.5-5.0); LYMPH % 30.5 % (24.0-44.0); MEAN CORPUSCULAR HEMOGLOBIN 30.5 pg (27.0-33.0); MEAN CORPUSCULAR HGB CONC 33.5 g/dl (32.0-36.5); MEAN CORPUSCULAR VOLUME 91.1 fl (80.0-96.0); MONO # 0.8 10^3/uL (0.0-0.8); MONO % 10.7 % (2.0-8.0); NEUTROPHILS # 4.2 10^3/uL (1.5-8.5); NEUTROPHILS % 56.5 % (36.0-66.0); PLATELET COUNT, AUTOMATED 225 10^3/uL (150-450); RED BLOOD COUNT 4.59 10^6/uL (4.00-5.40); WHITE BLOOD COUNT 7.5 10^3/uL (4.0-10.0)
[2021-04-27 14:44] LABS: APPEARANCE, URINE CLEAR (CLEAR); BACTERIA, URINE AUTO 1+ (NEGATIVE); BILIRUBIN, URINE AUTO NEGATIVE (NEGATIVE); BLOOD, URINE BLOOD NEGATIVE (NEGATIVE); COLOR, URINE YELLOW (YELLOW); GLUCOSE, URINE (UA) AUTO NEGATIVE (NEGATIVE); KETONE, URINE AUTO NEGATIVE (NEGATIVE); LEUKOCYTE ESTERASE, URINE AUTO NEGATIVE (NEGATIVE); MUCUS, URINE SMALL (NEGATIVE); NITRITE, URINE AUTO NEGATIVE (NEGATIVE); PROTEIN, URINE AUTO NEGATIVE (NEGATIVE); RBC, URINE AUTO 1 /HPF (0-3); SQUAMOUS EPITHELIAL CELL UR AU 2 /HPF (0-6); UROBILINOGEN, URINE AUTO 0.2 mg/dL (0.0-2.0); WBC, URINE AUTO 1 /HPF (0-3)
[2021-04-27 14:50] LABS: BLOOD UREA NITROGEN 13 MG/DL (7-18); CALCIUM LEVEL 9.6 MG/DL (8.5-10.1); CARBON DIOXIDE LEVEL 27 MEQ/L (21-32); CHLORIDE LEVEL 106 MEQ/L (98-107); CREATININE FOR GFR 0.74 MG/DL (0.55-1.30); GLOMERULAR FILTRATION RATE > 60.0 (>60); GLUCOSE, FASTING 75 MG/DL (70-100); POTASSIUM SERUM 4.8 MEQ/L (3.5-5.1); SODIUM LEVEL 138 MEQ/L (136-145)
[2021-04-27 15:02] LABS: MALB URINE SIEMENS 9.9 MG/L; MAU/CREAT RATIO 6.9 MCG/MG (0.0-30.0); TOTAL PROTEIN,RANDOM URINE 7.9 MG/DL (0.0-12.0)
[2021-04-27 15:13] LABS: HEMOGLOBIN A1c 5.2 %
== END ==
LOC: M LAB 13:11
PROVIDERS: ATTEND Internal Medicine Nephrology
DX: Z00.5 Encounter for examination of potential donor of organ and tissue (principal)

== ENCOUNTER → 2021-04-29 | Outpatient (CLI) | payer OTHER ==
[2021-04-29 14:35] LABS: APPEARANCE, URINE CLEAR (CLEAR); BACTERIA, URINE AUTO 1+ (NEGATIVE); BILIRUBIN, URINE AUTO NEGATIVE (NEGATIVE); BLOOD, URINE BLOOD NEGATIVE (NEGATIVE); COLOR, URINE YELLOW (YELLOW); GLUCOSE, URINE (UA) AUTO NEGATIVE (NEGATIVE); KETONE, URINE AUTO NEGATIVE (NEGATIVE); LEUKOCYTE ESTERASE, URINE AUTO NEGATIVE (NEGATIVE); MUCUS, URINE SMALL (NEGATIVE); NITRITE, URINE AUTO NEGATIVE (NEGATIVE); PROTEIN, URINE AUTO NEGATIVE (NEGATIVE); RBC, URINE AUTO 1 /HPF (0-3); SPECIFIC GRAVITY URINE AUTO 1.017 (1.002-1.035); SQUAMOUS EPITHELIAL CELL UR AU 2 /HPF (0-6); WBC, URINE AUTO 2 /HPF (0-3)
[2021-04-29 14:40] LABS: CREATININE FOR GFR 0.68 MG/DL (0.55-1.30); GLOMERULAR FILTRATION RATE > 60.0 (>60)
[2021-04-29 16:02] LABS: CREATININE, SERUM 0.8 MG/DL (0.6-1.0)
[2021-04-29 21:21] LABS: CREATININE CLEARANCE, URINE 68.8 ML/MIN (75-115); CREATININE, URINE 54.7 MG/DL; TOTAL VOLUME, URINE 1450 ML; URINE TOTAL PROTEIN < 5.0 MG/DL (0-12)
[2021-04-29 21:22] LABS: MALB URINE SIEMENS < 5.0 MG/L; MAU/CREAT RATIO 9.1 MCG/MG (0.0-30.0)
== END ==
LOC: M LAB 12:55
PROVIDERS: ATTEND Internal Medicine Nephrology
DX: Z00.5 Encounter for examination of potential donor of organ and tissue (principal)

== ENCOUNTER → 2021-12-29 | Outpatient (CLI) | payer OTHER | LOC: M PLAIMG 09:14 | PROVIDERS: ATTEND Physician Assistant | DX: M54.2 Cervicalgia (principal) ==